=== PATIENT | female | born 1975 | race Caucasian/White ===

== ENCOUNTER 2020-06-17 18:01 | Emergency (ER) | payer SELFPAY ==
[~2020-06-17] VITALS: Ht 165.1 cm; Wt 75.0 kg
[~2020-06-17 18:01] MED LIST: ALLEGRA-D 12 HO1 TER PO; BUSPIRONE; CEPHALEXIN500 M1 PO; FLEXERIL10 MG PO; LAMICTAL; LORTAB 10/500 51 TAB PO; LORTAB 5/500 501 TAB PO; MUCINEX 60600 MG/TAB PO; MVI; NAPROXEN EC500 MG PO; NEURONTIN300 MG PO; NO CURRENT MEDICATIO; NO HOME MEDICATIONS; PERCOCET 325 MG1 TA2 PO; SEPTRA 400 MG-1 TAB PO; TRAZADONE HYDR100 MG PO
[2020-06-17 19:24] LABS: COLLECTION METHOD CLEAN CATCH
[2020-06-17 19:30] LABS: MUCOUS Present /lpf; PH 8 (5-8); URINE APPEARANCE Clear; URINE BACTERIA None Seen /hpf; URINE BILIRUBIN Negative (NEGATIVE); URINE BLOOD Negative (NEGATIVE); URINE COLOR Yellow; URINE GLUCOSE Negative (NEGATIVE); URINE KETONE Trace (NEGATIVE); URINE LEUKOCYTE ESTERASE Negative (NEGATIVE); URINE NITRATE Negative (NEGATIVE); URINE PROTEIN(semi-quant) Negative (NEGATIVE); URINE RBC 0-2 /hpf
[2020-06-17 19:46] LABS: BASO % 0.4 % (0.0-2.0); EOS # 0.1 (0.0-0.7); EOS % 1.4 % (0-4.0); GRAN % 62.6 % (42.2-75.2); HEMATOCRIT 38.5 % (37.0-47.0); HEMOGLOBIN 12.7 g/dl (12.5-16.0); LYMPH # 2.3 (1.2-3.4); LYMPH % 28.4 % (20.0-51.0); MEAN CELL VOLUME 84 fl (80.0-100.0); MEAN CORPUSCULAR HEMOGLOBIN 28 pg (27.0-31.0); MEAN CORPUSCULAR HGB CONC 33 g/dl (33.0-37.0); MEAN PLATELET VOLUME 11.2 fl (7.4-10.4); MONO # 0.6 (0.1-0.6); PLATELET COUNT 273 K/mm3 (130-400); RED BLOOD COUNT 4.58 M/mm3 (4.10-5.30); REDCELL DISTRIBUTION WIDTH-CV 13.5 % (11.5-14.5)
[2020-06-17 19:57] LABS: ALBUMIN 4.3 gm/dL (3.5-5.0); BILIRUBIN,TOTAL 0.3 mg/dL (0.0-1.0); CALCIUM 9.2 mg/dL (8.4-10.2); CREATININE, serum 0.86 (0.52-1.25); TOTAL PROTEIN 7.1 gm/dL (6.4-8.2)
[2020-06-17 22:09] VITALS: BP 117/76; TEMP 98
[2020-06-17] MEDS ORDERED: PRILOTC PO (22:39)
[2020-06-17] MEDS ORDERED: NAPROXEN 3375 MG/TAB PO (22:39)
[2020-06-17] MEDS ORDERED: ZOFRAN 4MG T4 MG/TAB PO (22:39)
[2020-06-17 23:25] VITALS: PULSE 71
== END 2020-06-17 23:35 | disposition home or self-care (01) ==
LOC: COL.ER 18:01
PROVIDERS: Emergency Medicine
DX: R10.11 Right upper quadrant pain (principal); D48.9 Neoplasm of uncertain behavior, unspecified; R63.0 Anorexia; R53.83 Other fatigue; R53.81 Other malaise; F17.200 Nicotine dependence, unspecified, uncomplicated; Z32.02 Encounter for pregnancy test, result negative; Z90.49 Acquired absence of other specified parts of digestive tract
CPT/HCPCS: J1885; J2270; J2405; J7030; Q9967

== ENCOUNTER 2021-01-04 23:44 | Emergency (ER) | payer SELFPAY ==
[~2021-01-04] VITALS: Ht 165.1 cm; Wt 59.1 kg
[~2021-01-04 23:44] MED LIST changes: +NAPROXEN 3375 MG/TAB PO; +PRILOTC PO; +ZOFRAN 4MG T4 MG/TAB PO
[2021-01-04 23:55] VITALS: BP 126/83; PULSE 84; TEMP 98.2
[2021-01-05 00:08] LABS: COLLECTION METHOD CLEAN CATCH
[2021-01-05] MEDS ORDERED: BACTRIM DS 8001 TAB PO (00:09)
[2021-01-05] MEDS ORDERED: PYRIDIUM200 M1 PO (00:09)
[2021-01-05] MEDS ORDERED: MOTRIN 400400 MG/TAB PO (00:09)
[2021-01-05 00:19] LABS: MUCOUS Present /lpf; PH 6 (5-8); SQUAMOUS EPITHELIAL 0-2 /hpf; URINE APPEARANCE Cloudy; URINE BACTERIA Moderate /hpf; URINE BILIRUBIN Negative (NEGATIVE); URINE BLOOD 3+ (NEGATIVE); URINE COLOR Yellow; URINE GLUCOSE Negative (NEGATIVE); URINE KETONE Negative (NEGATIVE); URINE LEUKOCYTE ESTERASE 3+ (NEGATIVE); URINE NITRATE Positive (NEGATIVE); URINE PROTEIN(semi-quant) Negative (NEGATIVE); URINE UROBILINOGEN Negative (NEGATIVE)
== END 2021-01-05 00:44 | disposition home or self-care (01) ==
LOC: COL.ER 23:44
PROVIDERS: Emergency Medicine
DX: N39.0 Urinary tract infection, site not specified (principal); Z88.2 Allergy status to sulfonamides
CPT/HCPCS: J1885